=== PATIENT | female | born 2000 | race Caucasian/White ===

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

== ENCOUNTER 2022-09-03 21:38 | Emergency (ER) | payer MEDICAID, SELFPAY ==
--- NOTE | ~2022-09-03 | CT_ITS ---
EXAMINATION: CT head/brain wo IV con CLINICAL INFORMATION: Reason for Exam head injury COMPARISON: CT head without contrast 04/22/2021 TECHNIQUE: Contiguous axial imaging was performed from the skull base to vertex without intravenous contrast. Sagittal and coronal reformatted images were obtained. This CT examination was performed using dose optimization techniques as appropriate, variously including the following: * Automated exposure control * Adjustment of mA and/or kV according to patient size (this includes techniques or standardized protocols for targeted exams where dose is matched to indication/reason for exam; i.e. extremities or head) Use of iterative reconstruction technique DLP: 558 mGy-cm FINDINGS: No acute osseous or soft tissue abnormality. The mastoids are clear. Right sphenoid sinus mucosal thickening. There is no evidence of acute intracranial hemorrhage or territorial infarction. No abnormal mass effect or midline shift is seen. [place] to white matter differentiation is well preserved. No extra-axial fluid collections are identified. No hydrocephalus. No significant volume loss. There is no abnormal attenuation within the brain parenchyma. CT/CT head/brain wo IV con IMPRESSION: No acute intracranial abnormality including hemorrhage, mass effect, hydrocephalus, or acute territorial edematous infarction.
[2022-09-03 21:53] VITALS: BP 109/70; BP 118/76; PULSE 90; PULSE 91; RESP 12; TEMP 36.9; O2SAT 99; BMI 25.0
--- NOTE | 2022-09-03 21:53 | ECG_ITS ---
Test Reason : SIEZURE Blood Pressure : / mmHG Vent. Rate : 089 BPM Atrial Rate : 089 BPM P-R Int : 154 ms QRS Dur : 086 ms QT Int : 366 ms P-R-T Axes : 037 008 005 degrees QTc Int : 445 ms Normal sinus rhythm with sinus arrhythmia Cannot rule out Anterior infarct , age undetermined Nonspecific ST and T wave abnormality Abnormal ECG When compared with ECG of 16-APR-2021 01:45, No significant change was found Referred By: Generic ED Physician Electronically Signed By:NIDHI CORONEL
--- NOTE | 2022-09-03 22:37 | ED_ITS ---
HPI - Seizure General Chief Complaint: Seizure Stated Complaint: Fall Time Seen by Provider: 09/03/22 21:57 History of Present Illness HPI Narrative: Patient is 22-year-old female present today with having a possible pseudo seizure episode. Patient had a history of pseudoseizures in the past. Had an EEG done in the past, prolactin level was normal EEG was normal not on seizure medication at this time. Currently patient is at [facility]. Long history of bipolar, depression, migraine patient had a possible pseudo seizure episode hit her head have positive loss of consciousness presented to the ED for help. Patient is still stuttering. Claims she had had this in the past. Patient denies any chest pain. Denies any abdominal pain. Denies any chance of being . No nausea no vomiting. No focal weakness Related Data Home Medications Medication Instructions Recorded Confirmed albuterol sulfate 90 mcg/actuation 1 puff PO Q6H PRN Shortness Of 04/12/21 04/18/21 aerosol inhaler Breath budesonide-formoterol HFA 160 2 puff PO BID 04/12/21 04/18/21 mcg-4.5 mcg/actuation aerosol inhaler Previous Rx's Medication Instructions Recorded albuterol sulfate 90 mcg/actuation 2 puff inhalation Q4H PRN asthma 04/25/21 aerosol inhaler (Ventolin HFA) #6.7 grams budesonide 180 mcg/actuation 2 puff inhalation RBID #0 ea 04/25/21 breath activated powder inhaler (Pulmicort Flexhaler) escitalopram oxalate 5 mg tablet 5 mg PO DAILY #30 tabs 04/25/21 fludrocortisone 0.1 mg tablet 0.1 mg PO BID #0 tabs 04/25/21 lamotrigine 100 mg tablet 200 mg PO DAILY #60 tabs 04/25/21 lithium carbonate 300 mg tablet 300 mg PO DAILY #0 tabs 04/25/21 lithium carbonate 300 mg tablet 450 mg PO BEDTIME #0 tabs 04/25/21 metoprolol tartrate 25 mg tablet 25 mg PO BID #60 tabs 04/25/21 midodrine 2.5 mg tablet 2.5 mg PO TID #60 tabs 04/25/21 montelukast 10 mg tablet 10 mg PO BEDTIME #0 tabs 04/25/21 olanzapine 10 mg disintegrating 5 mg translingual DAILY #0 tabs 04/25/21 tablet olanzapine 10 mg disintegrating 20 mg translingual BEDTIME #0 tabs 04/25/21 tablet omeprazole 40 mg capsule,delayed 40 mg PO DAILY@0630 #0 caps 04/25/21 release tiotropium bromide 18 mcg capsule 18 mcg inhalation RDAILY #30 04/25/21 with inhalation device (Spiriva inhalations with HandiHaler) Allergies Allergy/AdvReac Type Severity Reaction Status Date / Time pineapple Allergy Swelling Verified 04/12/21 21:46 Review of Systems Review of Systems: Positive head injury Yes all other systems are reviewed and are negative FOR[facility]LY [facility], [facility] Past Medical History Attestation statement: The following information was validated with the patient. Medical History Anxiety Bipolar 1 disorder, depressed, severe Depression Pseudoseizure Social History Social History Household Members: Family Housing: House Housing Other:: school dorm Do you presently have visiting nurse or other home services: No Unable to assess alcohol history related to: Refusing to respond Patient Tobacco Use Status: Never used Tobacco e-Cigarette/Vaping Use: Never Used Substance Use Type: Marijuana Advance Directives: No Advance Directives Information Provided: No service: No Current occupational status: student Sexual orientation: Don't Know Physical Exam Vital Signs: Vital Signs: Last Vital Signs Temp 98.5 F 09/03/22 21:53 Pulse 83 09/03/22 23:37 Resp 17 09/03/22 23:37 BP 98/65 09/03/22 23:37 Pulse Ox 98 09/03/22 23:37 O2 Del Method Room Air 09/03/22 23:37 BMI result Body Mass Index 25.0 Appearance: Alert. Oriented X3. No acute distress. Eyes: Pupils equal, round and reactive to light. ENT: Pharynx normal. Neck: Normal inspection. Neck supple. No lymph nodes noted. No crepitus CVS: Normal heart rate and rhythm. Pulses normal. Normal S1 and S2 Respiratory: No respiratory distress. Breath sounds normal. No Wheezing. No rales Abdomen: Soft and nontender. No rigidity. No distention. good BS x4 Skin: Skin warm and dry. Normal skin color. Normal skin turgor. Extremities: No lower extremity edema. Neurovascular intact to all extremities. No Lacerations. No Rash Neuro: Oriented X 3. No motor deficit. No sensory deficit. Moving all extermities. No slurred speech Medications Administered Discontinued Medications Generic Name Dose Route Start Last Admin Trade Name Freq PRN Reason Stop Dose Admin Sodium Chloride 1,000 mls @ 999 mls/hr 09/03/22 22:45 09/03/22 23:40 Ns IV 09/03/22 23:45 999 mls/hr .Q1H1M CELESTINE Administration Medical Decision Making Medical Decision Making [facility] Narrative: Patient has a history of pseudoseizures. History of conversion disorder. CT scan of the head was grossly negative for any acute evidence of bleeding. No fracture. Patient's electrolytes are unremarkable. test was negative. Will discharge [facility]. In stable condition Differential Diagnosis Differential Diagnoses: The differential diagnosis associated with the presentation includes Head injury, seizure, pseudo seizure, , Lab Data [facility] Lab Attestation statement: I reviewed the patient's lab results. 09/03/22 23:24 09/03/22 23:23 Labs: Lab Results 09/03/22 09/03/22 Range/Units 23:23 23:24 WBC 10.3 (4.8-10.8) X10*3/uL RBC 4.55 (4.20-5.50) X10*6/uL Hgb 12.4 D (12.0-16.0) g/dl Hct 39.2 (37.0-47.0) % MCV 86.2 (80.0-98.0) fL MCH 27.3 (27.0-33.0) pg MCHC 31.6 (31.0-35.0) g/dl RDW 13.9 (11.0-16.0) % Plt Count 292 (160-400) X10*3/uL MPV 9.1 L (9.4-12.3) fL Immature Gran % (Auto) 0.2 (0.0-0.4) % Neut % (Auto) 58.2 (45-73) % Lymph % (Auto) 34.7 (20-40) % [place] % (Auto) 6.0 (2-11) % Eos % (Auto) 0.3 (0-4) % Baso % (Auto) 0.6 (0-2) % Lymph # (Auto) 3.6 (1.2-4.9) X10*3/uL [place] # (Auto) 0.6 (0.1-1.2) X10*3/uL Eos # (Auto) 0.0 (0.0-0.4) X10*3/uL Baso # (Auto) 0.1 (0.0-0.2) X10*3/uL Abs Immat Gran (auto) 0.02 (0.00-0.03) X10*3/uL Absolute Neuts (auto) 6.0 (2.0-8.3) x10*3/uL Absolute Nucleated RBC 0.000 (0.0-0.012) X10*3/uL Nucleated RBC % (auto) 0.0 (0.0-0.2) /100WBC Sodium 142 (135-145) mmol/L Potassium 5.0 D (3.3-5.1) mmol/L Chloride 111 H (96-108) mmol/L Carbon Dioxide 24 (22-29) mmol/L Anion Gap 12 (12-20) BUN 6 L (9-16) mg/dL Creatinine 0.91 (0.5-1.4) mg/dL Estim Creat Clear Calc 88.7 Estimated GFR > 60 Random Glucose 94 (60-115) mg/dL Calcium 10.1 D (8.4-10.2) mg/dL Total Bilirubin 0.4 (0.0-1.0) mg/dL AST 17 (5-31) U/L ALT 9 (0-31) U/L Alkaline Phosphatase 66 (39-117) U/L Total Protein 6.3 L (6.5-8.0) g/dL Albumin 4.2 (3.5-5.0) g/dL Beta HCG, Quant < 2 mIU/mL Radiology Impression Discussion of test interpretation with radiology: I have reviewed the radiologist's reading. External Record Review External record reviewed: Inpatient record Chronic Conditions Depression, pseudoseizures Social Determinants Patient?s care significantly limited by Social Determinants of Health including: Problems related to primary support group Discharge Plan Discharge Clinical Impression: Head injury Patient Disposition: Home, Self-Care Instructions: Head Injury (ED) Prescriptions: No Action albuterol sulfate 90 mcg/actuation HFA aerosol inhaler 1 puff PO Q6H PRN (Reason: Shortness Of Breath) budesonide-formoterol 160-4.5 mcg/actuation HFA aerosol inhaler 2 puff PO BID omeprazole 40 mg Capsule,Delayed Release(Dr/Ec) 40 mg PO DAILY@0630 Qty: 0 0RF olanzapine 10 mg Tablet,Disintegrating 20 mg translingual BEDTIME Qty: 0 0RF olanzapine 10 mg Tablet,Disintegrating 5 mg translingual DAILY Qty: 0 0RF montelukast 10 mg Tablet 10 mg PO BEDTIME Qty: 0 0RF midodrine 2.5 mg Tablet 2.5 mg PO TID Qty: 60 0RF albuterol sulfate [Ventolin HFA] 90 mcg/actuation Hfa Aerosol Inhaler 2 puff inhalation Q4H PRN (Reason: asthma) Qty: 6.7 0RF lithium carbonate 300 mg Tablet 300 mg PO DAILY Qty: 0 0RF lithium carbonate 300 mg Tablet 450 mg PO BEDTIME Qty: 0 0RF fludrocortisone 0.1 mg Tablet 0.1 mg PO BID Qty: 0 0RF lamotrigine 100 mg Tablet 200 mg PO DAILY Qty: 60 0RF escitalopram oxalate 5 mg Tablet 5 mg PO DAILY Qty: 30 0RF metoprolol tartrate 25 mg Tablet 25 mg PO BID Qty: 60 0RF Protocol: Hold for SBP/HR < HOLD for SBP < : 90 HOLD for HR < : 60 Spiriva with HandiHaler 18 mcg Capsule, W/Inhalation Device 18 mcg inhalation RDAILY Qty: 30 0RF Pulmicort Flexhaler 180 mcg/actuation Aerosol Powdr Breath Activated 2 puff inhalation RBID Qty: 0 0RF Referrals: Physician,Unknown J [Primary Care Provider] - 09/06/22
--- NOTE | 2022-09-03 23:10 | PC.NURSE ---
difficult iv stick dr bhatti made aware. labs ok per dr bhatti.
--- NOTE | 2022-09-03 23:28 | PC.NURSE ---
IV placed in the Left AC, labs drawn and sent.
[2022-09-03 23:29] LABS: MANUAL DIFF FLAG NO
[2022-09-03 23:31] LABS: Basophils Absolute Auto 0.1 X10*3/uL (0.0-0.2); Basophils Percent Auto 0.6 % (0-2); Eosinophils Percent Auto 0.3 % (0-4); Hematocrit 39.2 % (37.0-47.0); Hemoglobin 12.4 g/dl (12.0-16.0); Imm Gran Abs Auto 0.02 X10*3/uL (0.00-0.03); Imm Gran Pct Auto 0.2 % (0.0-0.4); Lymphocytes Absolute Auto 3.6 X10*3/uL (1.2-4.9); Lymphocytes Percent Auto 34.7 % (20-40); Mean Corpuscular HGB Conc 31.6 g/dl (31.0-35.0); Mean Corpuscular Hemoglobin 27.3 pg (27.0-33.0); Mean Corpuscular Volume 86.2 fL (80.0-98.0); Mean Platelet Volume 9.1 fL (9.4-12.3); Monocytes Absolute Auto 0.6 X10*3/uL (0.1-1.2); Neutrophils Percent Auto 58.2 % (45-73); Platelet Count 292 X10*3/uL (160-400); Red Blood Count 4.55 X10*6/uL (4.20-5.50); Red Cell Distribution Width 13.9 % (11.0-16.0); White Blood Count 10.3 X10*3/uL (4.8-10.8)
[2022-09-03 23:37] VITALS: BP 98/65; PULSE 83; RESP 17; O2SAT 98
[2022-09-03] MEDS: 0.9 % Sodium Chloride 1,000 ML 999 ML IV (23:40)
[2022-09-03 23:54] LABS: Alanine Aminotransferase 9 U/L (0-31); Albumin Level 4.2 g/dL (3.5-5.0); Alkaline Phosphatase 66 U/L (39-117); Anion Gap 12 (12-20); Aspartate Amino Transferase 17 U/L (5-31); Bilirubin Total 0.4 mg/dL (0.0-1.0); Blood Urea Nitrogen 6 mg/dL (9-16); Calcium 10.1 mg/dL (8.4-10.2); Carbon Dioxide 24 mmol/L (22-29); Chloride 111 mmol/L (96-108); Creatinine Clr Calc Pharmacy 88.7; Estimated Glomerular Filt Rate > 60; Glucose Random 94 mg/dL (60-115); HCG Quantitative < 2 mIU/mL; Sodium 142 mmol/L (135-145); Total Protein 6.3 g/dL (6.5-8.0)
--- NOTE | 2022-09-04 00:37 | PC.NURSE ---
Report given to nurse Bennett at [facility]. Pt returning via EMS and aware of plan of care.
[2022-09-04 00:52] VITALS: BP 105/70; PULSE 83; RESP 12; TEMP 36.9; O2SAT 97
--- NOTE | 2022-09-04 00:54 | MHC.EDTECH ---
Call out to [facility] @0043 to book transport back to [facility] on a section [address]
== END 2022-09-04 02:03 | disposition home or self-care (01) ==
PROVIDERS: Emergency Provider Emergency Medicine Emergency Medical Services
DX: R56.9 Unspecified convulsions (principal); R51.9 Headache, unspecified; I49.8 Other specified cardiac arrhythmias; Z79.899 Other long term (current) drug therapy
CPT/HCPCS: 36415; 70450; 80053; 84702; 85025; 93005; 96360; 99284